=== PATIENT | female | born 1940 | race Caucasian/White ===

== ENCOUNTER 2016-09-06 11:29 | Emergency (ER) | payer OTHER ==
[~2016-09-06] VITALS: Ht 152.4 cm; Wt 78.9 kg
[~2016-09-06 11:29] MED LIST: ACET-1311 PO; ASPI81TA28 PO; CHOL100010 PO; CLCC1250 PO; CYM/30 PO; DLCS PR; DPKSR500 PO; LVQ750 PO; MAGNSUS5 PO; METO50TA7 PO; MRLP17 PO; MULT-506 PO; PRED-301 PO; PRVC/40 PO; SENN-65 PO
[2016-09-06 11:39] VITALS: TEMP 36.6; Ht 152.4 cm; Wt 78.9 kg
--- NOTE | 2016-09-06 11:51 | EMERGENCY ROOM VISIT NOTE ---
History Report prepared by Rambo: Ba Lara Under the Supervision of: Dr. Cody Liu M.D. First contact with patient: 11:34 Stated Complaint: RESPIRATORY History of Present Illness The patient is a 75 year old female who presents to the Emergency Room with complaints of acute shortness of breath. The patient came to the ED from her alf because she appeared to be having shallow respirations. She also reportedly had an episode of respiratory arrest that resolved. The patient had mucous suctioned from her airway prior to arrival. The patient reportedly had an oxygen saturation of 97 on 2L of oxygen en route to the ED, per EMS. The patient currently denies any pain. She is not sure why she is in the ED. The patient is not on any narcotics, per ED nurse. Complete history is limited secondary to dementia. Source of History: patient, EMS, nursing staff History Limited By: dementia Onset: today Position: other (respiratory) Quality: other (short of breath) Timing: other (acute) Note: Denies any pain. Review of Systems ROS is limited secondary to dementia. Past Medical & Surgical Medical Problems: (1) Alzheimer disease (2) Cerebrovascular disease (3) CKD (chronic kidney disease) stage 3, GFR 30-59 ml/min (4) Coronary artery disease (5) Diastolic CHF (6) Dyslipidemia (7) GERD (gastroesophageal reflux disease) (8) Gout (9) History of TIAs (10) Hyperglycemia (11) Hypertension (12) Rheumatoid arthritis (13) Seizure disorder (14) Stroke (15) UTI (lower urinary tract infection) Surgical Problems: (1) Status post bilateral knee replacements (2) Status post hip replacement (3) Status post hysterectomy Family History FH: cancer MOTHER FH: heart disease BROTHER FH: hypertension MOTHER FH: pancreatic cancer BROTHER Current/Historical Medications Scheduled Aspirin (Aspirin Ec), 81 MG PO DAILY Calcium Carbonate (Tums), 500 MG PO DAILY Calcium Carbonate-Vitamin D (Oyster Shell Calcium 500), 1 TAB PO QPM Cholecalciferol (Vitamin D-1000), 1,000 UNITS PO DAILY Divalproex Sodium (Divalproex Sodium ER), 250 MG PO UD Divalproex Sodium (Divalproex Sodium ER), 500 MG PO UD Duloxetine Hcl (Cymbalta), 30 MG PO DAILY Duloxetine Hcl (Cymbalta), 60 MG PO DAILY Hydrocodone/Acetaminophen 5MG/325MG ([place] 5MG/325MG), 1 TAB PO BID Levothyroxine Sodium (Levothyroxine Sodium), 1 TAB PO DAILY Metoprolol Succ (Toprol Xl) (Toprol-Xl), 50 MG PO QAM Oxygen (Oxygen), 2 LITERS NA CONTINOUS Polyethylene Glycol 3350 (Miralax), 17 GM PO BID Pravastatin Sod (Pravastatin Sodium), 40 MG PO HS Prednisone (Prednisone), 5 MG PO Q2D Senna/Docusate Sod (Senokot S), 1 TAB PO DAILY Sulfa/Trimethoprim (Bactrim Ds 800MG/160MG), 1 TAB PO BID Scheduled PRN Acetaminophen (Tylenol), 650 MG PO Q4HR PRN PRN for Mild Pain Bisacodyl (Bisac-Evac), 1 SUPP [place] UD PRN for NO BM X5 D/MOM INEFFECTIVE Magnesium Hydroxide (Milk Of Magnesia), 30 ML PO UD PRN for NO BM X 3 DAYS Sodium Phosphate/Biphosphate (Fleet Enema), 1 EA [place] UD PRN for Constipation Allergies Coded Allergies: Clopidogrel (Verified Allergy, Unknown, 09/06/16) Penicillins (Verified Allergy, Unknown, 09/06/16) Phenytoin (Verified Allergy, Unknown, 09/06/16) Hydantoins (Verified Adverse Reaction, Unknown, RASH, 09/06/16) on chart from [facility] Physical Exam Vital Signs Date Time Temp Pulse Resp B/P Pulse Ox O2 Delivery O2 Flow Rate FiO2 09/06/16 15:44 73 16 155/91 95 Room Air 09/06/16 14:26 72 20 124/81 92 Room Air 09/06/16 12:21 71 09/06/16 11:39 36.6 100 20 121/67 96 Room Air 09/06/16 11:39 97 Room Air Physical Exam GENERAL: Patient awake, disoriented to time person and place. Patient follows commands. Patient does not appear toxic. Patient is adequately hydrated and well-nourished. SKIN: No erythema, pallor, cyanosis or rash HEENT: Normal head, pupils equal, reactive to light and accommodation. Oral cavity and posterior pharynx appear normal. Quivering tongue. Neck: Without adenopathy, no neck vein distention. LUNGS: Clear to auscultation. No wheezes, no rales, no rhonchi. HEART: No murmurs. No gallops. No rubs ABDOMEN: No masses, no rebound, no hepatomegaly or splenomegaly. EXTREMITIES: Contractures of both upper arms. NEUROLOGIC: Cranial nerves II-XII within normal limits. No gross motor sensory function deficits.\ RECTAL: Brown stool Hemoccult negative. Medical Decision & Procedures ER Provider Diagnostic Interpretation: X ray results are stated below per my interpretation and the radiologist's interpretation. SINGLE VIEW CHEST CLINICAL HISTORY: Dyspnea. FINDINGS: An AP, portable, upright chest radiograph is compared to study dated 03/28/2014. Correlation is made with chest CT dated 02/23/2011. The examination is significantly degraded by portable technique and patient rotation. The heart is mildly enlarged and there is atherosclerotic calcification of the thoracic aorta. There is chronic interstitial thickening and elevation of the right hemidiaphragm. No airspace consolidation or large pleural effusion is identified. No pneumothorax is seen. The skeletal structures are osteopenic. The bony thorax is grossly intact. IMPRESSION: Mild cardiac enlargement with no acute cardiopulmonary abnormality. Electronically signed by: Raul Payne M.D. 09/06/2016 12:46 PM Dictated Date/Time: 09/06/2016 12:45 PM Laboratory Results 09/06/16 12:15 Red Blood Count 3.68, Mean Corpuscular Volume 98.1, Mean Corpuscular Hemoglobin 33.2, Mean Corpuscular Hemoglobin Concent 33.8, Mean Platelet Volume 11.7, Neutrophils (%) (Auto) 67.0, Lymphocytes (%) (Auto) 17.3, Monocytes (%) (Auto) 14.1, Eosinophils (%) (Auto) 1.0, Basophils (%) (Auto) 0.1, Neutrophils # (Auto ) 6.29, Lymphocytes # (Auto) 1.62, Monocytes # (Auto) 1.32, Eosinophils # (Auto ) 0.09, Basophils # (Auto) 0.01 09/06/16 12:15 Test 09/06/16 12:00 09/06/16 12:15 Urine Color DK YELLOW Urine Appearance CLOUDY (CLEAR) Urine pH 6.5 (4.5-7.5) Urine Specific [place] 1.034 (1.000-1.030) Urine Protein 2+ (NEG) Urine Glucose (UA) NEG (NEG) Urine Ketones TRACE (NEG) Urine Occult Blood TRACE (NEG) Urine Nitrite POS (NEG) Urine Bilirubin NEG (NEG) Urine Urobilinogen NEG (NEG) Urine Leukocyte Esterase MODERATE (NEG) Urine WBC (Auto) >30 /hpf (0-5) Urine RBC (Auto) 5-10 /hpf (0-4) Urine Hyaline Casts (Auto) 1-5 /lpf (0-5) Urine Epithelial Cells (Auto) 20-30 /lpf (0-5) Urine Bacteria (Auto) 4+ (NEG) Urine Crystals CALCIUM OXALATE (NONE Urine Mucus PRESENT (NONE PRSENT) Urine Yeast (Auto) (NONE PRSENT) White Blood Count 9.38 K/uL (4.8-10.8) Red Blood Count 3.68 M/uL (4.2-5.4) Hemoglobin 12.2 g/dL (12.0-16.0) Hematocrit 36.1 % (37-47) Mean Corpuscular Volume 98.1 fL (80-100) Mean Corpuscular Hemoglobin 33.2 pg (25-34) Mean Corpuscular Hemoglobin Concent 33.8 g/dl (32-36) Platelet Count 177 K/uL (130-400) Mean Platelet Volume 11.7 fL (7.4-10.4) Neutrophils (%) (Auto) 67.0 % Lymphocytes (%) (Auto) 17.3 % Monocytes (%) (Auto) 14.1 % Eosinophils (%) (Auto) 1.0 % Basophils (%) (Auto) 0.1 % Neutrophils # (Auto) 6.29 K/uL (1.4-6.5) Lymphocytes # (Auto) 1.62 K/uL (1.2-3.4) Monocytes # (Auto) 1.32 K/uL (0.11-0.59) Eosinophils # (Auto) 0.09 K/uL (0-0.5) Basophils # (Auto) 0.01 K/uL (0-0.2) RDW Standard Deviation 44.7 fL (36.4-46.3) RDW Coefficient of Variation 12.6 % (11.5-14.5) Immature Granulocyte % (Auto) 0.5 % Immature Granulocyte # (Auto) 0.05 K/uL (0.00-0.02) Anion Gap 8.0 mmol/L (3-11) Est Creatinine Clear Calc Drug Dose 65.3 ml/min Estimated GFR () 98.3 Estimated GFR (Non- 84.8 BUN/Creatinine Ratio 26.3 (10-20) Calcium Level 9.1 mg/dl (8.5-10.1) Total Bilirubin 0.3 mg/dl (0.2-1) Aspartate Amino Transf (AST/SGOT) 12 U/L (15-37) Alanine Aminotransferase (ALT/SGPT) 15 U/L (12-78) Alkaline Phosphatase 57 U/L (45-117) Troponin I < 0.015 ng/ml (0-0.045) Total Protein 6.9 gm/dl (6.4-8.2) Albumin 2.9 gm/dl (3.4-5.0) Globulin 4.0 gm/dl (2.5-4.0) Albumin/Globulin Ratio 0.7 (0.9-2) Laboratory results as stated above per my review. ECG Indication: SOB/dyspnea Rate (beats per minute): 74 Rhythm: sinus rhythm Findings: PAC, no acute ischemic change, other (normal axis) ED Course 1136: Past medical records reviewed. The patient was evaluated in room C3. A complete history and physical examination was performed. 1508: Explained the results with the patient. 1520: Discussed the discharge instructions with the patient. She verbalized understanding. The patient is ready for discharge. Medical Decision I considered multiple diagnoses including respiratory arrest, pneumonia, seizure , syncope, metabolic disorder, infection, UTI. The patient had questionable apnea while at the nursing facility earlier today. The patient provides no valuable history. She does not appear to be in any distress. Multiple labs, EKG and imaging were obtained. Please see above. The patient was observed for approximately 4 hours and had no respiratory distress. The patient does appear to have a urinary tract infection. She will be placed on Bactrim. Impression Primary Impression: UTI (lower urinary tract infection) Scribe Attestation The scribe's documentation has been prepared under my direction and personally reviewed by me in its entirety. I confirm that the note above accurately reflects all work, treatment, procedures, and medical decision making performed by me. Departure Information Dispostion Home / Self-Care Prescriptions Sulfa/Trimethoprim (Bactrim Ds 800MG/160MG) Tab 1 TAB PO BID, #20 TAB Prov: Cody Liu M.D. 09/06/16 Referrals Zoraida Encinas M.D. (PCP) Forms HOME CARE DOCUMENTATION FORM, IMPORTANT VISIT INFORMATION Additional Instructions One Bactrim twice a day for 10 days. Continue all of your current medications as prescribed.
[2016-09-06] MEDS ORDERED: POLY335019 PO (12:08)
[2016-09-06] MEDS ORDERED: HYDR-5688 PO (12:08)
[2016-09-06] MEDS ORDERED: DULO60CA44 PO (12:08)
[2016-09-06] MEDS ORDERED: BISA10SU7 PR (12:08)
[2016-09-06] MEDS ORDERED: OXGN (12:08)
[2016-09-06] MEDS ORDERED: SODIENE PR (12:08)
[2016-09-06] MEDS ORDERED: MOML PO (12:08)
[2016-09-06] MEDS ORDERED: CHOL100040 PO (12:08)
[2016-09-06] MEDS ORDERED: CALC500T42 PO (12:08)
[2016-09-06] MEDS ORDERED: LEVO75TA5 PO (12:08)
[2016-09-06] MEDS ORDERED: DPKSR250 PO (12:08)
[2016-09-06] MEDS ORDERED: DPKSR500 PO (12:08)
[2016-09-06] MEDS ORDERED: CALC500C3 PO (12:08)
[2016-09-06 12:15] LABS: URINE APPEARANCE CLOUDY (CLEAR); URINE COLOR DK YELLOW; URINE EPITHELIAL CELL AUTO 20-30 /lpf (0-5); URINE NITRITE POS (NEG); URINE PH 6.5 (4.5-7.5); URINE SPECIFIC GRAVITY 1.034 (1.000-1.030); UROBILINOGEN NEG (NEG); ZZURINE CULT IF INDIC CATH YES
[2016-09-06 12:25] LABS: MANUAL MICROSCOPIC REQUIRED? NO; REVIEW REQ? YES
[2016-09-06 12:26] LABS: URINE BILIRUBIN NEG (NEG); URINE MUCUS PRESENT (NONE PRSENT)
[2016-09-06 12:28] LABS: BASO % 0.1 %; BASO ABS # 0.01 K/uL (0-0.2); COMPLETE YES; HEMATOCRIT 36.1 % (37-47); IG% 0.5 %; LYMPH % 17.3 %; LYMPH ABS # 1.62 K/uL (1.2-3.4); MEAN CELL VOLUME 98.1 fL (80-100); MEAN CORPUSCULAR HEMOGLOBIN 33.2 pg (25-34); MEAN CORPUSCULAR HGB CONC 33.8 g/dl (32-36); MEAN PLATELET VOLUME 11.7 fL (7.4-10.4); MONO % 14.1 %; PLATELET COUNT 177 K/uL (130-400); RED BLOOD COUNT 3.68 M/uL (4.2-5.4); WHITE BLOOD COUNT 9.38 K/uL (4.8-10.8)
[2016-09-06 12:42] LABS: ALT/SGPT 15 U/L (12-78); AST/SGOT 12 U/L (15-37); BLOOD UREA NITROGEN 18 mg/dl (7-18); BUN/CREATININE RATIO 26.3 (10-20); CALCIUM 9.1 mg/dl (8.5-10.1); CARBON DIOXIDE 29 mmol/L (21-32); CHLORIDE 102 mmol/L (98-107); CREATININE 0.67 mg/dl (0.60-1.20); GLUCOSE 97 mg/dl (70-99); POTASSIUM 4.3 mmol/L (3.5-5.1); SODIUM 139 mmol/L (136-145)
[2016-09-06 12:46] LABS: ALB/GLOB RATIO 0.7 (0.9-2); ALKALINE PHOSPHATASE 57 U/L (45-117)
--- NOTE | 2016-09-06 12:48 | DIAGNOSTIC IMAGING REPORT ---
SINGLE VIEW CHEST CLINICAL HISTORY: Dyspnea. FINDINGS: An AP, portable, upright chest radiograph is compared to study dated 03/28/2014. Correlation is made with chest CT dated 02/23/2011. The examination is significantly degraded by portable technique and patient rotation. The heart is mildly enlarged and there is atherosclerotic calcification of the thoracic aorta. There is chronic interstitial thickening and elevation of the right hemidiaphragm. No airspace consolidation or large pleural effusion is identified. No pneumothorax is seen. The skeletal structures are osteopenic. The bony thorax is grossly intact. IMPRESSION: Mild cardiac enlargement with no acute cardiopulmonary abnormality. Electronically signed by: Raul Payne M.D. 09/06/2016 12:46 PM Dictated Date/Time: 09/06/2016 12:45 PM
[2016-09-06] MEDS ORDERED: SULF800T23 PO (15:15)
[2016-09-06 15:44] VITALS: BP 155/91; PULSE 73; O2SAT 95
[2016-10-02] MEDS ORDERED: AMOX600S PO (12:46)
[2016-10-02] MEDS ORDERED: HYDR-5688 PO (12:46)
[2016-10-02] MEDS ORDERED: PRED10TA PO (12:46)
== END 2016-09-06 16:03 | disposition home or self-care (01) ==
LOC: EDBD 11:29 → C.EDC 11:32
DX: N39.0 Urinary tract infection, site not specified (principal); G30.9 Alzheimer's disease, unspecified; F02.80 Dementia in other diseases classified elsewhere, unspecified severity, without behavioral disturbance, psychotic disturbance, mood disturbance, and anxiety; I12.9 Hypertensive chronic kidney disease with stage 1 through stage 4 chronic kidney disease, or unspecified chronic kidney disease; M06.9 Rheumatoid arthritis, unspecified; N18.3 Chronic kidney disease, stage 3 (moderate); I25.10 Atherosclerotic heart disease of native coronary artery without angina pectoris; G40.909 Epilepsy, unspecified, not intractable, without status epilepticus; E78.5 Hyperlipidemia, unspecified; Z87.440 Personal history of urinary (tract) infections; Z86.73 Personal history of transient ischemic attack (TIA), and cerebral infarction without residual deficits; Z96.653 Presence of artificial knee joint, bilateral; Z96.649 Presence of unspecified artificial hip joint; Z90.710 Acquired absence of both cervix and uterus; Z82.49 Family history of ischemic heart disease and other diseases of the circulatory system; Z80.0 Family history of malignant neoplasm of digestive organs; Z79.52 Long term (current) use of systemic steroids; Z79.82 Long term (current) use of aspirin; Z79.899 Other long term (current) drug therapy

== ENCOUNTER 2016-09-29 12:49 | Inpatient (IN) | payer OTHER ==
[~2016-09-29] VITALS: Ht 152.4 cm; Wt 78.9 kg
[~2016-09-29 12:49] MED LIST changes: +BISA10SU7 PR; +CALC500C3 PO; +CALC500T42 PO; -CHOL100010 PO; +CHOL100040 PO; -CLCC1250 PO; -DLCS PR; +DPKSR250 PO; +DULO60CA44 PO; +HYDR-5688 PO; +LEVO75TA5 PO; -LVQ750 PO; -MAGNSUS5 PO; +MOML PO; -MRLP17 PO; -MULT-506 PO; +OXGN; +POLY335019 PO; +SODIENE PR; +SULF800T23 PO
[2016-09-29] MEDS ORDERED: SODIUM CHLORIDE 0.9% 1000ML 1,000 ML IV STA (12:57)
[2016-09-29] MEDS ORDERED: CEFTRIAXONE SOD INJ 1 GM ADDVIAL IV STA (12:57)
--- NOTE | 2016-09-29 13:20 | DIAGNOSTIC IMAGING REPORT ---
CHEST ONE VIEW PORTABLE CLINICAL HISTORY: Evaluate Fever/Sepsis COMPARISON STUDY: 09/06/2016 FINDINGS: The bones soft tissues and hemidiaphragms are normal. The cardiomediastinal silhouette is normal. The lungs are clear. The pulmonary vasculature is normal. IMPRESSION: Negative chest. Electronically signed by: Dinesh Soto M.D. 09/29/2016 1:18 PM Dictated Date/Time: 09/29/2016 1:17 PM
[2016-09-29] MEDS ORDERED: DULO60CA44 PO (14:05)
[2016-09-29 14:19] LABS: BASO % 0.2 %; BASO ABS # 0.02 K/uL (0-0.2); COMPLETE YES; EOS % 0.2 %; HEMATOCRIT 34.4 % (37-47); IG% 0.5 %; LYMPH % 18.9 %; LYMPH ABS # 2.05 K/uL (1.2-3.4); MEAN CELL VOLUME 99.1 fL (80-100); MEAN CORPUSCULAR HEMOGLOBIN 33.1 pg (25-34); MEAN CORPUSCULAR HGB CONC 33.4 g/dl (32-36); MEAN PLATELET VOLUME 10.8 fL (7.4-10.4); MONO % 12.2 %; PLATELET COUNT 172 K/uL (130-400); RED BLOOD COUNT 3.47 M/uL (4.2-5.4); WHITE BLOOD COUNT 10.82 K/uL (4.8-10.8)
[2016-09-29] MEDS ORDERED: ALBUT/IPRATROP 3MG/0.5MG NEB 3 ML VIAL INH STA (14:22)
[2016-09-29] MEDS ORDERED: OYST500T47 PO (14:23)
[2016-09-29 14:31] LABS: PROTHROMBIN TIME (PATIENT) 10.4 SECONDS (9.0-12.0)
[2016-09-29 14:42] LABS: ALT/SGPT 17 U/L (12-78); AST/SGOT 17 U/L (15-37); BLOOD UREA NITROGEN 16 mg/dl (7-18); BUN/CREATININE RATIO 23.4 (10-20); CALCIUM 8.4 mg/dl (8.5-10.1); CARBON DIOXIDE 29 mmol/L (21-32); CHLORIDE 108 mmol/L (98-107); CREATININE 0.68 mg/dl (0.60-1.20); GLUCOSE 116 mg/dl (70-99); POTASSIUM 4.2 mmol/L (3.5-5.1); SODIUM 143 mmol/L (136-145)
[2016-09-29 15:16] LABS: ALKALINE PHOSPHATASE 51 U/L (45-117); CKMB/CK RATIO 5.9 (0-3.0)
--- NOTE | 2016-09-29 15:44 | EMERGENCY ROOM VISIT NOTE ---
History Report prepared by Rambo: Andressa Hammond Under the Supervision of: Dr. Shashank Paige D.O. 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 She was brought to the ED by EMS from [facility]. A PA saw the patient at noon today and states that the patient was having severe dyspnea and using accessory muscles to breath. He notes rales and rhonchi bilaterally. She was tachycardic. She was more lethargic today than usually. The patient is on 2 L of oxygen as baseline, but has been bumped up to 4 L today after her O2 sat was in the 80s. The history is limited due to the patient's aphasia. 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 A total of 10 systems reviewed and were otherwise negative. Past Medical & Surgical Medical Problems: (1) Alzheimer disease (2) Cerebrovascular disease (3) CKD (chronic kidney disease) stage 3, GFR 30-59 ml/min (4) Coronary artery disease (5) Diastolic CHF (6) Dyslipidemia (7) GERD (gastroesophageal reflux disease) (8) Gout (9) History of TIAs (10) Hyperglycemia (11) Hypertension (12) Rheumatoid arthritis (13) Seizure disorder (14) Stroke (15) UTI (lower urinary tract infection) Surgical Problems: (1) Status post bilateral knee replacements (2) Status post hip replacement (3) Status post hysterectomy Family History FH: cancer MOTHER FH: heart disease BROTHER FH: hypertension MOTHER FH: pancreatic cancer BROTHER Social History Smoking Status: Unknown if Ever Smoked Marital Status: Housing Status: prison Occupation Status: retired Current/Historical Medications Scheduled Aspirin (Aspirin Ec), 81 MG PO DAILY Calcium Carbonate (Tums), 500 MG PO DAILY Cholecalciferol (Vitamin D-1000), 1,000 UNITS PO DAILY Divalproex Sodium (Divalproex Sodium ER), 250 MG PO DAILY Divalproex Sodium (Divalproex Sodium ER), 500 MG PO DAILY Duloxetine Hcl (Cymbalta), 60 MG PO DAILY Hydrocodone/Acetaminophen 5MG/325MG ([place] 5MG/325MG), 1 TAB PO BID Levothyroxine Sodium (Levothyroxine Sodium), 75 MCG PO DAILY Metoprolol Succ (Toprol Xl) (Toprol-Xl), 50 MG PO QAM Oxygen (Oxygen), 2 LITERS NA CONTINOUS Oyster Shell (Calcium), 500 MG PO DAILY Polyethylene Glycol 3350 (Miralax), 255 GM PO BID Pravastatin Sod (Pravastatin Sodium), 40 MG PO DAILY Prednisone (Prednisone), 5 MG PO Q2D Senna/Docusate Sod (Senokot S), 1 TAB PO HS Scheduled PRN Acetaminophen (Tylenol), 650 MG PO Q4HR PRN PRN for Mild Pain Bisacodyl (Bisac-Evac), 1 SUPP [place] UD PRN for NO BM X5 D/MOM INEFFECTIVE Magnesium Hydroxide (Milk Of Magnesia), 5 ML PO UD PRN for NO BM X 3 DAYS Sodium Phosphate/Biphosphate (Fleet Enema), 1 EA [place] UD PRN for Constipation Allergies Coded Allergies: Clopidogrel (Verified Allergy, Unknown, 09/29/16) Penicillins (Verified Allergy, Unknown, 09/29/16) Phenytoin (Verified Allergy, Unknown, 09/29/16) Hydantoins (Verified Adverse Reaction, Unknown, RASH, 09/29/16) on chart from [facility] Uncoded Allergies: THIENOPYRIDINES (Adverse Reaction, Unknown, ., 09/29/16) ON LIST Physical Exam Vital Signs Date Time Temp Pulse Resp B/P Pulse Ox O2 Delivery O2 Flow Rate FiO2 09/29/16 14:20 88 Nasal Cannula 4.0 09/29/16 14:08 72 18 123/66 97 Nasal Cannula 4.0 09/29/16 13:47 68 20 112/65 94 Nasal Cannula 4.0 09/29/16 13:04 Nasal Cannula 2.0 09/29/16 13:03 77 09/29/16 12:55 37.1 76 22 119/68 95 Nasal Cannula 2.0 Physical Exam CONSTITUTIONAL/VITAL SIGNS: Reviewed / noted above. GENERAL: Non-toxic in appearance. INTEGUMENTARY: Warm, dry, and [place]. HEAD: Normocephalic. EYES: without scleral icterus or trauma. ENT/OROPHARYNX: clear and moist. LYMPHADENOPATHY/NECK: Is supple without lymphadenopathy or meningismus. RESPIRATORY: Bilateral rhonchi, diminished left greater than right. No respiratory distress at this time. No increased work of breathing. CARDIOVASCULAR: Regular rate and rhythm. GI/ABDOMEN: Soft and nontender. No organomegaly or pulsatile mass. No rebound or guarding. Normal bowel sounds. EXTREMITIES: Warm and well perfused. BACK: No CVA tenderness. NEUROLOGICAL: Baseline upper and lower extremity paresis. PSYCHIATRIC: normal affect. MUSCULOSKELETAL: Normally developed with good muscle tone. Medical Decision & Procedures ER Provider Diagnostic Interpretation: X ray results and stated below per my interpretation and radiology interpretation. CHEST ONE VIEW PORTABLE CLINICAL HISTORY: Evaluate Fever/Sepsis COMPARISON STUDY: 09/06/2016 FINDINGS: The bones soft tissues and hemidiaphragms are normal. The cardiomediastinal silhouette is normal. The lungs are clear. The pulmonary vasculature is normal. IMPRESSION: Negative chest. Electronically signed by: Dinesh Soto M.D. 09/29/2016 1:18 PM Dictated Date/Time: 09/29/2016 1:17 PM Laboratory Results 09/29/16 13:55 Red Blood Count 3.47, Mean Corpuscular Volume 99.1, Mean Corpuscular Hemoglobin 33.1, Mean Corpuscular Hemoglobin Concent 33.4, Mean Platelet Volume 10.8, Neutrophils (%) (Auto) 68.0, Lymphocytes (%) (Auto) 18.9, Monocytes (%) (Auto) 12.2, Eosinophils (%) (Auto) 0.2, Basophils (%) (Auto) 0.2, Neutrophils # (Auto ) 7.36, Lymphocytes # (Auto) 2.05, Monocytes # (Auto) 1.32, Eosinophils # (Auto ) 0.02, Basophils # (Auto) 0.02 09/29/16 13:55 Test 09/29/16 13:01 09/29/16 13:55 Influenza Type A Antigen Neg for Influ A (NEG) Influenza Type B Antigen Neg for Influ B (NEG) White Blood Count 10.82 K/uL (4.8-10.8) Red Blood Count 3.47 M/uL (4.2-5.4) Hemoglobin 11.5 g/dL (12.0-16.0) Hematocrit 34.4 % (37-47) Mean Corpuscular Volume 99.1 fL (80-100) Mean Corpuscular Hemoglobin 33.1 pg (25-34) Mean Corpuscular Hemoglobin Concent 33.4 g/dl (32-36) Platelet Count 172 K/uL (130-400) Mean Platelet Volume 10.8 fL (7.4-10.4) Neutrophils (%) (Auto) 68.0 % Lymphocytes (%) (Auto) 18.9 % Monocytes (%) (Auto) 12.2 % Eosinophils (%) (Auto) 0.2 % Basophils (%) (Auto) 0.2 % Neutrophils # (Auto) 7.36 K/uL (1.4-6.5) Lymphocytes # (Auto) 2.05 K/uL (1.2-3.4) Monocytes # (Auto) 1.32 K/uL (0.11-0.59) Eosinophils # (Auto) 0.02 K/uL (0-0.5) Basophils # (Auto) 0.02 K/uL (0-0.2) RDW Standard Deviation 45.5 fL (36.4-46.3) RDW Coefficient of Variation 12.5 % (11.5-14.5) Immature Granulocyte % (Auto) 0.5 % Immature Granulocyte # (Auto) 0.05 K/uL (0.00-0.02) Prothrombin Time 10.4 SECONDS (9.0-12.0) Prothromb Time International Ratio 1.0 (0.9-1.1) Activated Partial Thromboplast Time 25.0 SECONDS (21.0-31.0) Partial Thromboplastin Ratio 1.0 Anion Gap 6.0 mmol/L (3-11) Estimated GFR () 97.8 Estimated GFR (Non- 84.4 BUN/Creatinine Ratio 23.4 (10-20) Calcium Level 8.4 mg/dl (8.5-10.1) Total Bilirubin 0.4 mg/dl (0.2-1) Direct Bilirubin 0.1 mg/dl (0-0.2) Aspartate Amino Transf (AST/SGOT) 17 U/L (15-37) Alanine Aminotransferase (ALT/SGPT) 17 U/L (12-78) Alkaline Phosphatase 51 U/L (45-117) Total Creatine Kinase 17 U/L (26-192) Creatine Kinase MB 1.0 ng/ml (0.5-3.6) Creatine Kinase MB Ratio 5.9 (0-3.0) Troponin I 0.084 ng/ml (0-0.045) Total Protein 6.3 gm/dl (6.4-8.2) Albumin 2.6 gm/dl (3.4-5.0) Lipase 172 U/L (73-393) Laboratory results as stated above per my review. Medications Administered Medications (Trade) Dose Ordered Sig/Mauricio Route Start Time Stop Time Status Last Admin Dose Admin Sodium Chloride (Nss 1000ml) 1,000 ml @ 999 mls/hr Q1H1M STAT IV 09/29/16 12:57 09/29/16 13:57 DC 09/29/16 13:25 999 MLS/HR Ceftriaxone Sodium (Rocephin Inj) 1 gm NOW STAT IV 09/29/16 12:57 09/29/16 13:00 DC 09/29/16 14:10 1 GM Albuterol/ Ipratropium (Duoneb) 3 ml NOW STAT INH 09/29/16 14:22 09/29/16 14:23 DC 09/29/16 14:24 3 ML ECG Indication: SOB/dyspnea Rate (beats per minute): 77 Rhythm: normal sinus Findings: no ectopy, other (no acute injury) ED Course 1257: Rocephin Inj 1 gm IV, NSS 1000 ml @ 999 mls/hr IV. 1259: Previous medical records were reviewed. The patient was evaluated in room C9. A complete history and physical examination was performed. 1422: Duoneb 3 ml INH. 1532: On reevaluation, the patient is resting comfortably. I discussed the results and findings with her. She agrees with the treatment plan. The patient will be evaluated for further management and care. 1535: I discussed the patient's case with Dr. Woodall, [place] Hospitalist. The patient will be evaluated for further management. Medical Decision the differential was considered includes acute myocardial infarction, acute coronary syndrome, myocarditis, pericarditis, pericardial effusions /tamponad, esophageal perforation, pulmonary embolism, pneumonia, pneumothorax, cardiomyopathy, congestive heart, anemia , COPD/asthma exacerbation. This is a 75-year-old female who presents to the ED with a chief complaint of having visible shortness of breath while at the nursing facility. The patient was evaluated by physician service assistant there. Per the note, the patient was having respiratory distress, using accessory muscles and had a pulse ox in the mid lower 80s. The patient is normally on 2 L of oxygen at home. She was suctioned at the nursing facility. Upon EMS arrival, the patient's symptoms had improved. On the patient's evaluation here, her oxygen saturations are 95% on 2 L. The patient really reports no shortness of breath. Lungs reveal some crackles. She is in no respiratory distress. She is not using accessory muscles. She appears to be breathing comfortably. Chest x-ray did not show any acute disease. EKG shows a normal sinus rhythm. There are no ischemic changes. CBC was unremarkable. Flu swab was negative. Chemistry panel was unremarkable. Troponin was elevated at 0.084. This could be related to some transient hypoxia. Because of this elevation, I did speak with the hospitalist service who will further evaluate the patient. The patient is currently resting comfortably after a DuoNeb treatment. Her oxygen saturations are currently in the 90s on 2 L of oxygen, her usual home O2 concentration. Consults Time Called: 1530 Consulting Physician: Dr. Woodall [facility] hospitalist Returned Call: [phone] Discussed the patient's case. The patient will be evaluated for further treatment and disposition. Impression Primary Impression: NSTEMI (non-ST elevated myocardial infarction) Additional Impression: transient hypoxemia Scribe Attestation The scribe's documentation has been prepared under my direction and personally reviewed by me in its entirety. I confirm that the note above accurately reflects all work, treatment, procedures, and medical decision making performed by me. Departure Information Dispostion Being Evaluated By Hospitalist Referrals Zoraida Encinas M.D. (PCP) Patient Instructions My [facility] Problem Qualifiers
[2016-09-29] MEDS ORDERED: NITROGLYCERIN 0.4 MG SL PER TAB CHARGE SL PRN (17:30)
[2016-09-29 18:15] VITALS: BP 143/84; PULSE 94; TEMP 36.9; O2SAT 94
[2016-09-29 18:20] VITALS: BP 120/76; PULSE 81; TEMP 37.1; O2SAT 96; Ht 152.4 cm; Wt 78.9 kg
[2016-09-29] MEDS: D5W AND LACTATED RINGERS 1,000 ML IV SCH (18:55)
[2016-09-29] MEDS ORDERED: HYDROCORTISONE IV 50 MG in SYRINGE 0 ML IV ONE (19:00)
[2016-09-29] MEDS: ACETAMINOPHEN 325 MG TAB PO PRN (19:31)
[2016-09-29 19:37] VITALS: BP 117/64; PULSE 97; TEMP 36.8; O2SAT 93
[2016-09-29] MEDS: HEPARIN SOD 5000 UNIT/0.5 ML CARP SQ SCH (20:57)
[2016-09-29 22:55] LABS: CKMB/CK RATIO 4.2 (0-3.0)
--- NOTE | 2016-09-29 23:11 | History and Physical ---
History & Physical Date & Time of Service: Sep 29, 2016 at ~ 17:30 . Chief Complaint: vomiting, hypoxia . Primary Care Physician: Zoraida Encinas M.D. . History of Present Illness Source: family, clinic records, hospital records 75 YO female followed by Dr. Encinas at [facility]. History of ischemic heart disease, diastolic CHF, hypertension, Alzheimer's disease, cerebrovascular disease, and other problems noted below. Uses O2 2 LPM for chronic respiratory failure. Patient very confused and nonambulatory at baseline. Requires assistance with eating and all ADL's. Daughter reports episode of vomiting yesterday. Today patient was noted to be acutely SOB with chest congestion and hypoxia with O2 sats in the low 80's on NC 2 LPM. Patient was suctioned. O2 sats still only 85% on 4L. Patient was transported to ED for further evaluation. Patient unable to provide any history due to her severe dementia. . Past Medical/Surgical History Chronic and Resolved Medical Problems: (1) Alzheimer disease Status: Chronic (2) Cerebrovascular disease Status: Chronic (3) CKD (chronic kidney disease) stage 3, GFR 30-59 ml/min Status: Chronic (4) Coronary artery disease Status: Chronic (5) Diastolic CHF Status: Chronic (6) Dyslipidemia Status: Chronic (7) GERD (gastroesophageal reflux disease) Status: Chronic (8) Gout Status: Chronic (9) History of TIAs Status: Chronic (10) Hyperglycemia Status: Chronic (11) Hypertension Status: Chronic (12) Rheumatoid arthritis Permanent Comment: chronic prednisone therapy Status: Chronic (13) Seizure disorder Status: Chronic (14) Stroke Status: Resolved (15) UTI (lower urinary tract infection) Status: Resolved Surgical Problems: (1) Status post bilateral knee replacements Status: Chronic (2) Status post hip replacement Status: Chronic (3) Status post hysterectomy Status: Chronic . Family History FH: cancer MOTHER FH: heart disease BROTHER FH: hypertension MOTHER FH: pancreatic cancer BROTHER Social History Smoking Status: Never Smoker Alcohol Use: none Marital Status: Housing status: prison Occupational Status: retired Immunizations History of Influenza Vaccine: Yes History of Tetanus Vaccine?: Yes Tetanus Immunization Date: Jun 06, 2009 History of Pneumococcal: Yes Pneumococcal Date: Aug 29, 2011 History of Hepatitis B Vaccine: No Allergies Coded Allergies: Clopidogrel (Verified Allergy, Unknown, 09/29/16) Penicillins (Verified Allergy, Unknown, 09/29/16) Phenytoin (Verified Allergy, Unknown, 09/29/16) Hydantoins (Verified Adverse Reaction, Unknown, RASH, 09/29/16) on chart from [facility] Uncoded Allergies: THIENOPYRIDINES (Adverse Reaction, Unknown, ., 09/29/16) ON LIST Home Medications Scheduled Aspirin (Aspirin Ec), 81 MG PO DAILY Calcium Carbonate (Tums), 500 MG PO DAILY Cholecalciferol (Vitamin D-1000), 1,000 UNITS PO DAILY Divalproex Sodium (Divalproex Sodium ER), 250 MG PO DAILY Divalproex Sodium (Divalproex Sodium ER), 500 MG PO DAILY Duloxetine Hcl (Cymbalta), 60 MG PO DAILY Hydrocodone/Acetaminophen 5MG/325MG (Platter 5MG/325MG), 1 TAB PO BID Levothyroxine Sodium (Levothyroxine Sodium), 75 MCG PO DAILY Metoprolol Succ (Toprol Xl) (Toprol-Xl), 50 MG PO QAM Oxygen (Oxygen), 2 LITERS NA CONTINOUS Oyster Shell (Calcium), 500 MG PO DAILY Polyethylene Glycol 3350 (Miralax), 255 GM PO BID Pravastatin Sod (Pravastatin Sodium), 40 MG PO DAILY Prednisone (Prednisone), 5 MG PO Q2D Senna/Docusate Sod (Senokot S), 1 TAB PO HS Scheduled PRN Acetaminophen (Tylenol), 650 MG PO Q4HR PRN PRN for Mild Pain Bisacodyl (Bisac-Evac), 1 SUPP NC UD PRN for NO BM X5 D/MOM INEFFECTIVE Magnesium Hydroxide (Milk Of Magnesia), 5 ML PO UD PRN for NO BM X 3 DAYS Sodium Phosphate/Biphosphate (Fleet Enema), 1 EA NC UD PRN for Constipation Review of Systems Unable to obtain due to patient's dementia. . Physical Exam Vital Signs Date Time Temp Pulse Resp B/P Pulse Ox O2 Delivery O2 Flow Rate FiO2 09/29/16 20:00 Nasal Cannula 4.0 09/29/16 19:37 36.8 97 18 117/64 93 Nasal Cannula 4.0 09/29/16 18:20 37.1 81 22 120/76 96 Nasal Cannula 4.0 09/29/16 18:15 36.9 94 18 143/84 94 Nasal Cannula 4.0 09/29/16 18:10 81 22 120/76 96 09/29/16 17:03 70 09/29/16 16:34 72 18 127/70 100 Room Air 09/29/16 14:20 88 Nasal Cannula 4.0 09/29/16 14:08 72 18 123/66 97 Nasal Cannula 4.0 09/29/16 13:47 68 20 112/65 94 Nasal Cannula 4.0 09/29/16 13:04 Nasal Cannula 2.0 09/29/16 13:03 77 09/29/16 12:55 37.1 76 22 119/68 95 Nasal Cannula 2.0 General Appearance: no apparent distress Head: normocephalic, atraumatic Eyes: PERRL, EOMI, sclerae normal ENT: + pertinent finding (edentulous) Neck: supple, no adenopathy, thyroid normal, no JVD, trachea midline Respiratory/Chest: + pertinent finding (few scattered rhonchi, mild wheezing) Cardiovascular: regular rate, rhythm, no edema (1+ pretibial edema), no JVD, + systolic murmur (III/ systolic murmur heard at base and LSB), + pertinent finding (no gallop appreciated) Abdomen/GI: normal bowel sounds, non tender, soft, no organomegaly Extremities/Musculoskelatal: no calf tenderness, + slow capillary refill ( about 2 sec), + pertinent finding (contractures hands bilat) Neurologic/Psych: radio director II-XII nml as tested (PERRL, EOMI), + pertinent finding ( patient very confused; unable to cooperate with exam or follow instructions; apparent weakness bilat upper and lower extremities; plantar reflexes upgoing bilat) Skin: normal color, warm/dry Lymphatic: + pertinent finding (no cervical adenopathy) Diagnostics Laboratory Results Results Past 24 Hours Test 09/29/16 13:01 09/29/16 13:55 09/29/16 22:07 Range/Units Influenza Type A Antigen Neg for Influ A NEG Influenza Type B Antigen Neg for Influ B NEG White Blood Count 10.82 4.8-10.8 K/uL Red Blood Count 3.47 4.2-5.4 M/uL Hemoglobin 11.5 12.0-16.0 g/dL Hematocrit 34.4 37-47 % Mean Corpuscular Volume 99.1 80-100 fL Mean Corpuscular Hemoglobin 33.1 25-34 pg Mean Corpuscular Hemoglobin Concent 33.4 32-36 g/dl Platelet Count 172 130-400 K/uL Mean Platelet Volume 10.8 7.4-10.4 fL Neutrophils (%) (Auto) 68.0 % Lymphocytes (%) (Auto) 18.9 % Monocytes (%) (Auto) 12.2 % Eosinophils (%) (Auto) 0.2 % Basophils (%) (Auto) 0.2 % Neutrophils # (Auto) 7.36 1.4-6.5 K/uL Lymphocytes # (Auto) 2.05 1.2-3.4 K/uL Monocytes # (Auto) 1.32 0.11-0.59 K/uL Eosinophils # (Auto) 0.02 0-0.5 K/uL Basophils # (Auto) 0.02 0-0.2 K/uL RDW Standard Deviation 45.5 36.4-46.3 fL RDW Coefficient of Variation 12.5 11.5-14.5 % Immature Granulocyte % (Auto) 0.5 % Immature Granulocyte # (Auto) 0.05 0.00-0.02 K/uL Prothrombin Time 10.4 9.0-12.0 SECONDS Prothromb Time International Ratio 1.0 0.9-1.1 Activated Partial Thromboplast Time 25.0 21.0-31.0 SECONDS Partial Thromboplastin Ratio 1.0 Sodium Level 143 136-145 mmol/L Potassium Level 4.2 3.5-5.1 mmol/L Chloride Level 108 98-107 mmol/L Carbon Dioxide Level 29 21-32 mmol/L Anion Gap 6.0 3-11 mmol/L Blood Urea Nitrogen 16 7-18 mg/dl Creatinine 0.68 0.60-1.20 mg/dl Estimated GFR () 97.8 Estimated GFR (Non- 84.4 BUN/Creatinine Ratio 23.4 10-20 Random Glucose 116 70-99 mg/dl Calcium Level 8.4 8.5-10.1 mg/dl Total Bilirubin 0.4 0.2-1 mg/dl Direct Bilirubin 0.1 0-0.2 mg/dl Aspartate Amino Transf (AST/SGOT) 17 15-37 U/L Alanine Aminotransferase (ALT/SGPT) 17 12-78 U/L Alkaline Phosphatase 51 45-117 U/L Total Creatine Kinase 17 24 26-192 U/L Creatine Kinase MB 1.0 1.0 0.5-3.6 ng/ml Creatine Kinase MB Ratio 5.9 4.2 0-3.0 Troponin I 0.084 0.059 0-0.045 ng/ml Total Protein 6.3 6.4-8.2 gm/dl Albumin 2.6 3.4-5.0 gm/dl Lipase 172 73-393 U/L Microbiology Results 09/29/16 Blood Culture, Received Pending 09/29/16 Blood Culture, Received Pending Diagnostic Radiology CHEST ONE VIEW PORTABLE FINDINGS: The bones soft tissues and hemidiaphragms are normal. The cardiomediastinal silhouette is normal. The lungs are clear. The pulmonary vasculature is normal. IMPRESSION: Negative chest. Electronically signed by: Dinesh Soto M.D. 09/29/2016 1:18 PM Dictated Date/Time: 09/29/2016 1:17 PM . EKG EKG performed at 13:13 reviewed and demonstrated NSR at 80 / minute, RBBB, repolarization abnormalities. . Impression Assessment and Plan HYPOXIA / ACUTE ON CHRONIC RESPIRATORY FAILURE Acute respiratory distress with tachypnea and use of accessory muscles at prison. O2 sats in low 80's on NC 2 LPM. Hypoxia most likely due to aspiration. No infiltrates or CHF on chest x-ray. Titrate supplemental O2. IV steroids and nebs for bronchospasm. SUSPECTED ASPIRATION Underlying Alzheimer's disease and cerebrovascular disease. Aspiration precautions. Pureed diet with thickened liquids. VOMITING Patient had at least one episode of vomiting at the prison. Abdominal exam benign. May need further evaluation if ongoing N/V. ELEVATED SERUM TROPONIN Troponin I 0.084 with normal total CPK. Unable to determine if patient having any anginal symptoms. EKG shows NSR, RBBB, nonspecific changes. Suspect that elevated troponin is a nonspecific finding. Check serial cardiac markers. CORONARY ARTERY DISEASE Elevated troponin as noted above. Continue aspirin, metoprolol, statin. HYPERTENSION Continue metoprolol. Follow and titrate therapy. RA On chronic prednisone therapy. IV hydrocortisone while acutely ill to maintain hemodynamics and treat bronchospasm with taper to maintenance dose of prednisone. DEMENTIA Watch for signs of delirium. SEIZURE DISORDER Continue valproic acid; check level. VTE PROPHYLAXIS Moderately high risk for DVT. Subcutaneous heparin. Unable to ambulate. RESUSCITATION STATUS Patient has a living will from 2007. Records from [facility] indicate that code status is DNR. DNR status confirmed with daughter. DISPOSITION Admit to Telemetry Unit. Expected return to [facility] under the care of Dr. Encinas. . Advanced Directives Existing Living Will: No Existing Power of Shrimp Cleaner: No VTE Prophylaxis VTE Risk Assessment Done? Y/N: Yes Risk Level: Moderate Given or contraindicated: Unfractionated heparin SQ
[2016-09-30] VITALS (10 sets, daily range): BP systolic 99–139; BP diastolic 58–74; PULSE 59–77; TEMP 36.7–37; O2SAT 93–100
[2016-09-30 04:38] LABS: URINE APPEARANCE CLEAR (CLEAR); URINE BILIRUBIN NEG (NEG); URINE COLOR YELLOW; URINE EPITHELIAL CELL AUTO >30 /lpf (0-5); URINE NITRITE NEG (NEG); UROBILINOGEN NEG (NEG); ZZURINE CULT IF INDIC CATH NO
[2016-09-30 04:39] LABS: MANUAL MICROSCOPIC REQUIRED? NO; REVIEW REQ? NO
[2016-09-30] MEDS ORDERED: LEVALBUTEROL 0.63MG/3 ML NEB INH PRN (05:00)
[2016-09-30] MEDS: LEVOTHYROXINE 75 MCG TAB PO SCH (06:00)
[2016-09-30] MEDS ORDERED: HYDROCORTISONE IV 50 MG in SYRINGE 0 ML IV SCH (06:00)
[2016-09-30 06:40] LABS: HEMATOCRIT 32.7 % (37-47); MEAN CORPUSCULAR HEMOGLOBIN 32.9 pg (25-34); MEAN CORPUSCULAR HGB CONC 33.9 g/dl (32-36); MEAN PLATELET VOLUME 11.2 fL (7.4-10.4); PLATELET COUNT 158 K/uL (130-400); RED BLOOD COUNT 3.37 M/uL (4.2-5.4); WHITE BLOOD COUNT 7.75 K/uL (4.8-10.8)
[2016-09-30 07:09] LABS: BUN/CREATININE RATIO 19.9 (10-20); CALCIUM 8.8 mg/dl (8.5-10.1); CREATININE 0.65 mg/dl (0.60-1.20); POTASSIUM 3.6 mmol/L (3.5-5.1)
[2016-09-30 07:15] LABS: CKMB/CK RATIO 3.5 (0-3.0)
--- NOTE | 2016-09-30 07:16 | Clinical Documentation Query ---
JAVED Lorenzana : CLINICAL DOCUMENTATION QUERY Patient is a 75 year old female admitted for evaluation and treatment of acute respiratory failure in the setting of suspected aspiration. Patient was noted to have experienced at least one episode of vomiting at the residential. No infiltrates were seen on CXR. Supplemental O2 is being provided as is IV steroids for bronchospasm. She is being maintained on aspiration precautions and a pureed diet with thickened liquids. Risk factors include vomiting in the setting of known cerebrovascular disease and Alzheimer's dementia. In your clinical opinion is this patient being managed for: ( + ) Aspiration pneumonitis ( ) Other explanation of clinical findings (Please Explain) ( ) Unable to determine (Please Define) ( ) Need to Discuss ( ) Not Agree The medical record reflects the following clinical findings, treatment, and risk factors. Clinical Indicators: As above Treatment:Supplemental O2 is being provided as is IV steroids for bronchospasm. She is being maintained on aspiration precautions and a pureed diet with thickened liquids Risk Factors:cerebrovascular disease and Alzheimer's dementia, vomiting Please clarify and document your clinical opinion in the progress notes and discharge summary. Terms such as "probable", "suspected", "likely", "questionable", "possible", or "still to be ruled out" are acceptable. IF IN AGREEMENT, YOU MUST DOCUMENT ABOVE DIAGNOSTIC STATEMENT IN DAILY PROGRESS NOTES AND DISCHARGE SUMMARY. This document is not part of the patient's record. Thank You, Iglesia Simon RN [phone]
[2016-09-30] MEDS: D5W AND LACTATED RINGERS 1,000 ML IV SCH ×2 (08:09→20:55)
[2016-09-30] MEDS: PRAVASTATIN SOD 40 MG TAB PO SCH (08:11)
[2016-09-30] MEDS: METOPROLOL SUCC 50MG EXT REL TAB PO SCH (08:11)
[2016-09-30] MEDS: ASPIRIN 81 MG ECTAB PO SCH (08:11)
[2016-09-30] MEDS: DULOXETINE HCL 60 MG CAP PO SCH (08:11)
[2016-09-30] MEDS: DIVALPROEX 500 MG EXTENDED RELEASE TAB PO SCH (08:12)
[2016-09-30] MEDS: DIVALPROEX 250 MG EXTENDED REL TAB PO SCH (08:12)
[2016-09-30] MEDS: HEPARIN SOD 5000 UNIT/0.5 ML CARP SQ SCH ×2 (08:17→20:55)
--- NOTE | 2016-09-30 10:05 | Progress Note ---
Internal Med Progress Note Date of Service: Sep 30, 2016. Provider Documentation: SUBJECTIVE: Patient is disoriented x 3, minimal conversation which is her baseline, alert + Cough, congested, not bringing up much sputum. Denies any chest pain. No fever, chills noted On 4 L oxygen OBJECTIVE: Vital Signs-as noted below Exam: General Appearance: Awake, alert, disoriented x 3 at baseline ENT: + pertinent finding (edentulous) Neck: supple Respiratory/Chest: + pertinent finding (few scattered rhonchi) Cardiovascular: regular rate, rhythm, no edema (1+ pretibial edema), no JVD, + systolic murmur Abdomen/GI: normal bowel sounds, non tender, soft Extremities/Musculoskelatal: no calf tenderness, + pertinent finding ( contractures hands bilat) Neurologic/Psych: Patient very confused; unable to cooperate with exam or follow instructions; apparent weakness bilat upper and lower extremities Lab data as noted below. Diagnostic Radiology CHEST ONE VIEW PORTABLE FINDINGS: The bones soft tissues and hemidiaphragms are normal. The cardiomediastinal silhouette is normal. The lungs are clear. The pulmonary vasculature is normal. IMPRESSION: Negative chest. Electronically signed by: Dinesh Soto M.D. 09/29/2016 1:18 PM Dictated Date/Time: 09/29/2016 1:17 PM . EKG EKG performed at 13:13 reviewed and demonstrated NSR at 80 / minute, RBBB, repolarization abnormalities. ASSESSMENT & PLAN: Assessment and Plan ACUTE ON CHRONIC HYPOXIC RESPIRATORY FAILURE : Acute respiratory distress with tachypnea and [facility]. O2 sats in low 80's on NC 2 LPM. Hypoxia most likely due to aspiration -No infiltrates or CHF on chest x-ray. -Titrate supplemental O2. -IV steroids and nebs for bronchospasm. SUSPECTED ASPIRATION PNEUMONITIS : Underlying Alzheimer's disease and cerebrovascular disease. -Came with hypoxia and had an episode of vomiting yesterday at [facility] -CXR- no infiltrates, but can be negative initially -Will start on PO Augmentin -Aspiration precautions. -Pureed diet with thickened liquids. -Speech Rx consulted VOMITING : Patient had at least one episode of vomiting at the [facility]. -No further episodes of nausea, vomiting. Abdominal exam benign. ELEVATED SERUM TROPONIN Troponin I 0.084--> 0.059-->0.037 Likely demand ischemia, but unable to determine if patient having any anginal symptoms. -EKG shows NSR, RBBB, nonspecific changes. -Monitor CORONARY ARTERY DISEASE Elevated troponin as noted above. -Continue aspirin, metoprolol, statin. HYPERTENSION -Continue metoprolol. -Follow and titrate therapy. RA -On chronic prednisone therapy. -IV hydrocortisone while acutely ill to maintain hemodynamics and treat bronchospasm --> will taper to prednisone DEMENTIA -Watch for signs of delirium. -At her baseline- Non ambulatory, Disoriented x 3, minimal conversation SEIZURE DISORDER -Valproic acid- 58; -Continue with depakote as at home VTE PROPHYLAXIS -Moderately high risk for DVT. -Subcutaneous heparin. -Unable to ambulate. RESUSCITATION STATUS Patient has a living will from 2007. Records from [facility] indicate that code status is DNR. DNR status confirmed with daughter. DISPOSITION Expected return to [facility] under the care of Dr. Encinas. Vital Signs: Date Time Temp Pulse Resp B/P Pulse Ox O2 Delivery O2 Flow Rate FiO2 09/30/16 08:00 100 Nasal Cannula 4.0 09/30/16 07:50 36.8 72 18 114/71 100 Nasal Cannula 4.0 09/30/16 06:25 99/63 09/30/16 04:00 37.0 76 20 99/61 97 4.0 09/30/16 04:00 Nasal Cannula 4.0 09/30/16 00:00 Nasal Cannula 4.0 09/30/16 00:00 36.7 77 18 139/58 96 Nasal Cannula 4.0 09/29/16 20:00 Nasal Cannula 4.0 09/29/16 19:37 36.8 97 18 117/64 93 Nasal Cannula 4.0 09/29/16 18:20 37.1 81 22 120/76 96 Nasal Cannula 4.0 09/29/16 18:15 36.9 94 18 143/84 94 Nasal Cannula 4.0 09/29/16 18:10 81 22 120/76 96 09/29/16 17:03 70 09/29/16 16:34 72 18 127/70 100 Room Air 09/29/16 14:20 88 Nasal Cannula 4.0 09/29/16 14:08 72 18 123/66 97 Nasal Cannula 4.0 09/29/16 13:47 68 20 112/65 94 Nasal Cannula 4.0 09/29/16 13:04 Nasal Cannula 2.0 09/29/16 13:03 77 09/29/16 12:55 37.1 76 22 119/68 95 Nasal Cannula 2.0 Lab Results: Results Past 24 Hours Test 09/29/16 13:01 09/29/16 13:55 09/29/16 22:07 09/30/16 04:22 Range/Units Influenza Type A Antigen Neg for Influ A NEG Influenza Type B Antigen Neg for Influ B NEG White Blood Count 10.82 4.8-10.8 K/uL Red Blood Count 3.47 4.2-5.4 M/uL Hemoglobin 11.5 12.0-16.0 g/dL Hematocrit 34.4 37-47 % Mean Corpuscular Volume 99.1 80-100 fL Mean Corpuscular Hemoglobin 33.1 25-34 pg Mean Corpuscular Hemoglobin Concent 33.4 32-36 g/dl Platelet Count 172 130-400 K/uL Mean Platelet Volume 10.8 7.4-10.4 fL Neutrophils (%) (Auto) 68.0 % Lymphocytes (%) (Auto) 18.9 % Monocytes (%) (Auto) 12.2 % Eosinophils (%) (Auto) 0.2 % Basophils (%) (Auto) 0.2 % Neutrophils # (Auto) 7.36 1.4-6.5 K/uL Lymphocytes # (Auto) 2.05 1.2-3.4 K/uL Monocytes # (Auto) 1.32 0.11-0.59 K/uL Eosinophils # (Auto) 0.02 0-0.5 K/uL Basophils # (Auto) 0.02 0-0.2 K/uL RDW Standard Deviation 45.5 36.4-46.3 fL RDW Coefficient of Variation 12.5 11.5-14.5 % Immature Granulocyte % (Auto) 0.5 % Immature Granulocyte # (Auto) 0.05 0.00-0.02 K/uL Prothrombin Time 10.4 9.0-12.0 SECONDS Prothromb Time International Ratio 1.0 0.9-1.1 Activated Partial Thromboplast Time 25.0 21.0-31.0 SECONDS Partial Thromboplastin Ratio 1.0 Sodium Level 143 136-145 mmol/L Potassium Level 4.2 3.5-5.1 mmol/L Chloride Level 108 98-107 mmol/L Carbon Dioxide Level 29 21-32 mmol/L Anion Gap 6.0 3-11 mmol/L Blood Urea Nitrogen 16 7-18 mg/dl Creatinine 0.68 0.60-1.20 mg/dl Estimated GFR () 97.8 Estimated GFR (Non- 84.4 BUN/Creatinine Ratio 23.4 10-20 Random Glucose 116 70-99 mg/dl Calcium Level 8.4 8.5-10.1 mg/dl Total Bilirubin 0.4 0.2-1 mg/dl Direct Bilirubin 0.1 0-0.2 mg/dl Aspartate Amino Transf (AST/SGOT) 17 15-37 U/L Alanine Aminotransferase (ALT/SGPT) 17 12-78 U/L Alkaline Phosphatase 51 45-117 U/L Total Creatine Kinase 17 24 26-192 U/L Creatine Kinase MB 1.0 1.0 0.5-3.6 ng/ml Creatine Kinase MB Ratio 5.9 4.2 0-3.0 Troponin I 0.084 0.059 0-0.045 ng/ml Total Protein 6.3 6.4-8.2 gm/dl Albumin 2.6 3.4-5.0 gm/dl Lipase 172 73-393 U/L Urine Color YELLOW Urine Appearance CLEAR CLEAR Urine pH 6.0 4.5-7.5 Urine Specific [place] 1.020 1.000-1.030 Urine Protein NEG NEG Urine Glucose (UA) NEG NEG Urine Ketones 1+ NEG Urine Occult Blood NEG NEG Urine Nitrite NEG NEG Urine Bilirubin NEG NEG Urine Urobilinogen NEG NEG Urine Leukocyte Esterase SMALL NEG Urine WBC (Auto) 1-5 0-5 /hpf Urine RBC (Auto) 0-4 0-4 /hpf Urine Hyaline Casts (Auto) 5-10 0-5 /lpf Urine Epithelial Cells (Auto) >30 0-5 /lpf Urine Bacteria (Auto) NEG NEG Test 09/30/16 06:18 Range/Units White Blood Count 7.75 4.8-10.8 K/uL Red Blood Count 3.37 4.2-5.4 M/uL Hemoglobin 11.1 12.0-16.0 g/dL Hematocrit 32.7 37-47 % Mean Corpuscular Volume 97.0 80-100 fL Mean Corpuscular Hemoglobin 32.9 25-34 pg Mean Corpuscular Hemoglobin Concent 33.9 32-36 g/dl RDW Standard Deviation 44.7 36.4-46.3 fL RDW Coefficient of Variation 12.6 11.5-14.5 % Platelet Count 158 130-400 K/uL Mean Platelet Volume 11.2 7.4-10.4 fL Sodium Level 140 136-145 mmol/L Potassium Level 3.6 3.5-5.1 mmol/L Chloride Level 105 98-107 mmol/L Carbon Dioxide Level 29 21-32 mmol/L Anion Gap 6.0 3-11 mmol/L Blood Urea Nitrogen 13 7-18 mg/dl Creatinine 0.65 0.60-1.20 mg/dl Est Creatinine Clear Calc Drug Dose 67.3 ml/min Estimated GFR () 99.3 Estimated GFR (Non- 85.6 BUN/Creatinine Ratio 19.9 10-20 Random Glucose 106 70-99 mg/dl Calcium Level 8.8 8.5-10.1 mg/dl Total Creatine Kinase 23 26-192 U/L Creatine Kinase MB 0.8 0.5-3.6 ng/ml Creatine Kinase MB Ratio 3.5 0-3.0 Troponin I 0.037 0-0.045 ng/ml Valproic Acid (Depakene) Level 58 50-100 mcg/ml Microbiology Results 09/29/16 Blood Culture, Received Pending 09/29/16 Blood Culture, Received Pending
[2016-09-30] MEDS: ACETAMINOPHEN 325 MG TAB PO PRN (12:04)
[2016-09-30] MEDS: AMOXICILLIN/CLAV POTAS 600 MG/42.9MG/5 ML 75 ML PO SCH (17:06)
[2016-09-30] MEDS: CLINDAMYCIN HCL 150 MG CAP PO SCH (20:56)
[2016-10-01] VITALS (8 sets, daily range): BP systolic 94–145; BP diastolic 52–83; PULSE 58–78; TEMP 36.5–36.9; O2SAT 93–98
[2016-10-01] MEDS: CLINDAMYCIN HCL 150 MG CAP PO SCH (06:11)
[2016-10-01] MEDS: LEVOTHYROXINE 75 MCG TAB PO SCH (06:11)
[2016-10-01] MEDS: PRAVASTATIN SOD 40 MG TAB PO SCH (08:10)
[2016-10-01] MEDS: DIVALPROEX 250 MG EXTENDED REL TAB PO SCH (08:10)
[2016-10-01] MEDS: DIVALPROEX 500 MG EXTENDED RELEASE TAB PO SCH (08:10)
[2016-10-01] MEDS: DULOXETINE HCL 60 MG CAP PO SCH (08:10)
[2016-10-01] MEDS: PANTOprazole SOD 40 MG TAB PO SCH (08:10)
[2016-10-01] MEDS: METOPROLOL SUCC 50MG EXT REL TAB PO SCH (08:11)
[2016-10-01] MEDS: ASPIRIN 81 MG ECTAB PO SCH (08:11)
[2016-10-01] MEDS: D5W AND LACTATED RINGERS 1,000 ML IV SCH (08:13)
[2016-10-01] MEDS: HEPARIN SOD 5000 UNIT/0.5 ML CARP SQ SCH ×2 (08:16→20:40)
[2016-10-01] MEDS: AMOXICILLIN/CLAV POTAS 600 MG/42.9MG/5 ML 75 ML PO SCH ×2 (08:16→17:40)
--- NOTE | 2016-10-01 10:48 | Progress Note ---
Internal Med Progress Note Date of Service: Oct 01, 2016. Provider Documentation: SUBJECTIVE: Patient is awake, alert, pleasant but disoriented x 3, minimal conversation which is her baseline Cough, congested, not bringing up much sputum and overall improved Denies any chest pain. No fever, chills noted On 4 L oxygen-98% OBJECTIVE: Vital Signs-as noted below Exam: General Appearance: Awake, alert, disoriented x 3 at baseline ENT: + pertinent finding (edentulous) Neck: supple Respiratory/Chest: + pertinent finding (few scattered rhonchi) Cardiovascular: regular rate, rhythm, no edema (1+ pretibial edema), no JVD, + systolic murmur Abdomen/GI: normal bowel sounds, non tender, soft Extremities/Musculoskelatal: no calf tenderness, + pertinent finding ( contractures hands bilat) Neurologic/Psych: Patient very confused; unable to cooperate with exam or follow instructions; apparent weakness bilat upper and lower extremities Lab data as noted below. Diagnostic Radiology CHEST ONE VIEW PORTABLE FINDINGS: The bones soft tissues and hemidiaphragms are normal. The cardiomediastinal silhouette is normal. The lungs are clear. The pulmonary vasculature is normal. IMPRESSION: Negative chest. Electronically signed by: Dinesh Soto M.D. 09/29/2016 1:18 PM Dictated Date/Time: 09/29/2016 1:17 PM . EKG EKG performed at 13:13 reviewed and demonstrated NSR at 80 / minute, RBBB, repolarization abnormalities. ASSESSMENT & PLAN: Assessment and Plan ACUTE ON CHRONIC HYPOXIC RESPIRATORY FAILURE : Improved Acute respiratory distress with tachypnea and use of accessory muscles at [facility] on presentation. O2 sats in low 80's on NC 2 LPM. Hypoxia most likely due to aspiration -No infiltrates or CHF on chest x-ray. -Titrate supplemental O2. -PO steroids/Nebs for bronchospasm SUSPECTED ASPIRATION PNEUMONITIS : Underlying Alzheimer's disease and cerebrovascular disease. -Came with hypoxia and had an episode of vomiting at [place] -CXR- no infiltrates, but can be negative initially -Started on PO Augmentin (Day 2/5) -Aspiration precautions. -Pureed diet with thickened liquids. -Speech Rx consulted- aspirates with everything she eats. Discussed with , corby, who understands the risk of aspiration/pneumonia with food but given her poor baseline/dementia would not want her to have any feeding tubes. HIGH ASPIRATION RISK Per speech therapy As discussed above Discussed with , corby, who understands the risk of aspiration/pneumonia with food but given her poor baseline/dementia would not want her to have any feeding tubes. If this leads to frequent hospitalizations, deteriorates the quality of life further, would consider comfort care -Aspiration precautions -Pureed diet with thickened liquids EPISODE OF VOMITING : Resolved Patient had at least one episode of vomiting at the detention. None since admission while in hospital -No further episodes of nausea, vomiting. Abdominal exam benign. ELEVATED SERUM TROPONIN Troponin I 0.084--> 0.059-->0.037 Likely demand ischemia, but unable to determine if patient having any anginal symptoms. -EKG shows NSR, RBBB, nonspecific changes. -No events on telemetry CORONARY ARTERY DISEASE Elevated troponin as noted above. -Continue aspirin, metoprolol, statin. HYPERTENSION -Continue metoprolol. -Follow and titrate therapy. RA -On chronic prednisone therapy. -IV hydrocortisone while acutely ill to maintain hemodynamics and treat bronchospasm --> tapered down to prednisone PO for bronchospasm DEMENTIA-stable, at baseline -Watch for signs of delirium. -At her baseline- Non ambulatory, Disoriented x 3, minimal conversation SEIZURE DISORDER -Valproic acid- 58; -Continue with depakote as at home VTE PROPHYLAXIS -Moderately high risk for DVT. -Subcutaneous heparin. -Unable to ambulate. RESUSCITATION STATUS Patient has a living will from 2007. Records from [facility] indicate that code status is DNR. DNR status confirmed with daughter. DISPOSITION Expected return to [facility] under the care of Dr. Encinas. Likely discharge in AM Discussed with over phone- understands the risk of aspiration/ pneumonias in future. Vital Signs: Date Time Temp Pulse Resp B/P Pulse Ox O2 Delivery O2 Flow Rate FiO2 10/01/16 07:45 98 Nasal Cannula 4.0 10/01/16 07:26 36.9 78 18 145/71 98 Nasal Cannula 4.0 10/01/16 04:38 36.7 66 20 94/52 94 Nasal Cannula 4.0 10/01/16 04:00 Nasal Cannula 4.0 10/01/16 00:00 Nasal Cannula 4.0 09/30/16 23:15 36.8 65 18 130/71 93 4.0 09/30/16 20:00 Nasal Cannula 4.0 09/30/16 19:10 36.8 62 18 134/68 93 4.0 09/30/16 17:00 Nasal Cannula 4.0 09/30/16 15:28 36.9 59 20 127/74 94 Nasal Cannula 4.0 09/30/16 12:17 37.0 66 22 105/65 100 Room Air 09/30/16 12:00 100 Nasal Cannula 4.0
[2016-10-02] MEDS: LEVOTHYROXINE 75 MCG TAB PO SCH (05:52)
[2016-10-02 07:15] VITALS: BP 144/66; PULSE 64; TEMP 36.7; O2SAT 91
[2016-10-02] MEDS: METOPROLOL SUCC 50MG EXT REL TAB PO SCH (08:16)
[2016-10-02] MEDS: ASPIRIN 81 MG ECTAB PO SCH (08:16)
[2016-10-02] MEDS: PANTOprazole SOD 40 MG TAB PO SCH (08:17)
[2016-10-02] MEDS: DIVALPROEX 500 MG EXTENDED RELEASE TAB PO SCH (08:17)
[2016-10-02] MEDS: DIVALPROEX 250 MG EXTENDED REL TAB PO SCH (08:18)
[2016-10-02] MEDS: DULOXETINE HCL 60 MG CAP PO SCH (08:18)
[2016-10-02] MEDS: PRAVASTATIN SOD 40 MG TAB PO SCH (08:18)
[2016-10-02] MEDS: AMOXICILLIN/CLAV POTAS 600 MG/42.9MG/5 ML 75 ML PO SCH (08:34)
[2016-10-02] MEDS: HEPARIN SOD 5000 UNIT/0.5 ML CARP SQ SCH (08:35)
[2016-10-02 11:35] VITALS: O2SAT 94
[2016-10-02 11:37] VITALS: BP 144/66; PULSE 64; TEMP 36.7; O2SAT 94
--- NOTE | 2016-10-02 12:43 | Progress Note ---
Internal Med Progress Note Date of Service: Oct 02, 2016. Provider Documentation: SUBJECTIVE: Patient is awake, alert, pleasant but disoriented x 3, minimal conversation which is her baseline Cough, congested, not bringing up much sputum and overall improved Denies any chest pain. No fever, chills noted Off oxygen -92% OBJECTIVE: Vital Signs-as noted below Exam: General Appearance: Awake, alert, disoriented x 3 at baseline ENT: + pertinent finding (edentulous) Neck: supple Respiratory/Chest: + pertinent finding (few scattered rhonchi) Cardiovascular: regular rate, rhythm, no edema (1+ pretibial edema), no JVD, + systolic murmur Abdomen/GI: normal bowel sounds, non tender, soft Extremities/Musculoskelatal: no calf tenderness, + pertinent finding ( contractures hands bilat) Neurologic/Psych: Patient very confused; unable to cooperate with exam or follow instructions; apparent weakness bilat upper and lower extremities Lab data as noted below. Diagnostic Radiology CHEST ONE VIEW PORTABLE FINDINGS: The bones soft tissues and hemidiaphragms are normal. The cardiomediastinal silhouette is normal. The lungs are clear. The pulmonary vasculature is normal. IMPRESSION: Negative chest. Electronically signed by: Dinesh Soto M.D. 09/29/2016 1:18 PM Dictated Date/Time: 09/29/2016 1:17 PM . EKG EKG performed at 13:13 reviewed and demonstrated NSR at 80 / minute, RBBB, repolarization abnormalities. ASSESSMENT & PLAN: Assessment and Plan ACUTE ON CHRONIC HYPOXIC RESPIRATORY FAILURE : Improved Acute respiratory distress with tachypnea and use of accessory muscles at senior living on presentation. O2 sats in low 80's on NC 2 LPM. Hypoxia most likely due to aspiration -No infiltrates or CHF on chest x-ray. -Titrate supplemental O2- Off at rest, but will need 2 L oxygen while ambulating -PO steroids/Nebs for bronchospasm SUSPECTED ASPIRATION PNEUMONITIS : Underlying Alzheimer's disease and cerebrovascular disease. -Came with hypoxia and had an episode of vomiting at [place] -CXR- no infiltrates, but can be negative initially -Started on PO Augmentin (Day 3/5) -Aspiration precautions. -Pureed diet with thickened liquids. -Speech Rx consulted- aspirates with everything she eats. Permissive aspiration . Discussed with , corby, who understands the risk of aspiration/ pneumonia with food but given her poor baseline/dementia would not want her to have any feeding tubes. HIGH ASPIRATION RISK Per speech therapy As discussed above Discussed with , corby, who understands the risk of aspiration/pneumonia with food but given her poor baseline/dementia would not want her to have any feeding tubes. If this leads to frequent hospitalizations, deteriorates the quality of life further, would consider comfort care -Aspiration precautions -Pureed diet with thickened liquids EPISODE OF VOMITING : Resolved Patient had at least one episode of vomiting at the senior living. None since admission while in hospital -No further episodes of nausea, vomiting. Abdominal exam benign. ELEVATED SERUM TROPONIN Troponin I 0.084--> 0.059-->0.037 Likely demand ischemia, but unable to determine if patient having any anginal symptoms. -EKG shows NSR, RBBB, nonspecific changes. -No events on telemetry CORONARY ARTERY DISEASE Elevated troponin as noted above. -Continue aspirin, metoprolol, statin. HYPERTENSION -Continue metoprolol. -Follow and titrate therapy. RA -On chronic prednisone therapy. -IV hydrocortisone while acutely ill to maintain hemodynamics and treat bronchospasm --> tapered down to prednisone PO for bronchospasm DEMENTIA-stable, at baseline -Watch for signs of delirium. -At her baseline- Non ambulatory, Disoriented x 3, minimal conversation SEIZURE DISORDER -Valproic acid- 58; -Continue with depakote as at home VTE PROPHYLAXIS -Moderately high risk for DVT. -Subcutaneous heparin. -Unable to ambulate. RESUSCITATION STATUS Patient has a living will from 2007. Records from [facility] indicate that code status is DNR. DNR status confirmed with daughter. DISPOSITION Expected return to [facility] under the care of Dr. Encinas. Okay to discharge [facility] today Discussed with over phone- understands the risk of aspiration/ pneumonias in future. Vital Signs: Date Time Temp Pulse Resp B/P Pulse Ox O2 Delivery O2 Flow Rate FiO2 10/02/16 11:37 36.7 64 18 94 Nasal Cannula 10/02/16 11:35 94 Nasal Cannula 2.0 10/02/16 08:30 Nasal Cannula 2.0 10/02/16 07:15 36.7 64 18 144/66 91 Nasal Cannula 2.0 10/02/16 00:00 Nasal Cannula 2.0 10/01/16 23:10 36.5 58 18 145/83 93 Nasal Cannula 2.0 10/01/16 16:58 95 Nasal Cannula 2.0 10/01/16 15:48 95 Nasal Cannula 2.0 10/01/16 15:27 36.8 68 20 125/70 95 Room Air
[2016-10-02] MEDS ORDERED: HYDR-5688 PO (12:46)
[2016-10-02] MEDS ORDERED: PRED10TA PO (12:46)
[2016-10-02] MEDS ORDERED: AMOX600S PO (12:46)
--- NOTE | 2016-10-02 12:48 | Discharge Instructions ---
Discharge Instructions Date of Service Oct 02, 2016. Admission Reason for Admission: Elevated Troponin, Hypoxia Discharge Discharge Diagnosis / Problem: 1. Aspiration pneumonitis 2. Hypoxia- acute on chronic Discharge Goals Goal(s): Decrease discomfort, Improve function Activity Recommendations Activity Limitations: resume your previous activity (as tolerated prior to admission) . Instructions / Follow-Up Instructions / Follow-Up MEDICATION CHANGES: 1. New medication: Clindamycin as directed x 3 more days to complete 5 day course for possible aspiration pneumonitis 2. Prednisone as folllows- 20 mg daily x 3 days f/b 10 mg daily x 3 days f/b 5 mg q 2 days as prior to admission FOLLOW UP 1. Follow up with PCP in 1 week OXYGEN 2 L as prior to admission Current Hospital Diet Patient's current hospital diet: AHA Diet (Heart Healthy), Diabetes Type 2 Diet Discharge Diet Recommended Diet: AHA Diet (Heart Healthy), Diabetes Type 2 Diet Diet Texture: Pureed (blended smooth) (with thickened liquids with aspiration precautions) Liquid Consistency: [place] Thick Pending Studies Studies pending at discharge: no Medical Emergencies . Who to Call and When: Medical Emergencies: If at any time you feel your situation is an emergency, please call 911 immediately. . Non-Emergent Contact Non-Emergency issues call your: Primary Care Provider . . "Provider Documentation" section prepared by Sherley Elizondo. . VTE Core Measure Inpt VTE Proph given/why not?: Unfractionated heparin SQ
--- NOTE | 2016-10-02 12:51 | Discharge Summary ---
Discharge Summary Date of Service Oct 02, 2016. Discharge Summary Admission Date: Sep 29, 2016 at 17:29 Discharge Date: Oct 02, 2016 Discharge Disposition: [facility] facility ([facility]) Principal Diagnosis: 1. Aspiration pneumonitis 2. Acute on chronic hypoxic respiratory failure Secondary Diagnoses/Problems: 1. Dementia 2. HTN 3. Rh arthritis hx 4. Seizure disorder Procedures: IV antibiotics CXR PT/OT Steroids CXR Speech evaluation Consultations: None Pending Studies/Follow-Up: Instructions / Follow-Up Instructions / Follow-Up MEDICATION CHANGES: 1. New medication: Clindamycin as directed x 3 more days to complete 5 day course for possible aspiration pneumonitis 2. Prednisone as folllows- 20 mg daily x 3 days f/b 10 mg daily x 3 days f/b 5 mg q 2 days as prior to admission FOLLOW UP 1. Follow up with PCP in 1 week Medication Reconciliation New Medications: Prednisone Tab (Prednisone) 10 Mg Tab 10 MG PO UD, #30 TAB Take 20 mg daily x 3 days f/b 10 mg daily x 3 days f/b 5 mg q 2 days as prior to admission Amoxicillin & Pot Clavulanate (Amoxicillin/Clavulanate P) 1 Rosa Rosa 800 MG PO BIDM for 3 Days Continued Medications: Acetaminophen (Tylenol) 325 Mg Tab 650 MG PO Q4HR PRN PRN for Mild Pain, 0 Refills NOT TO EXCEED 3000 MG APAP/24HR Aspirin (Aspirin Ec) 81 Mg Tab 81 MG PO DAILY Bisacodyl (Bisac-Evac) 10 Mg Sup 1 SUPP ID UD PRN for NO BM X5 D/MOM INEFFECTIVE Calcium Carbonate (Tums) 500 Mg Chew 500 MG PO DAILY Cholecalciferol (Vitamin D-1000) 1,000 Unit Tab 1000 UNITS PO DAILY Divalproex Sodium (Divalproex Sodium ER) 250 Mg Tabcr 250 MG PO DAILY GIVE AT 1PM DAILY ALONG WITH 500MG TAB TO EQUAL 750MG DAILY DOSAGE Divalproex Sodium (Divalproex Sodium ER) 500 Mg Tabcr 500 MG PO DAILY TAKE 500MG WITH 250MG DAILY TO EQUAL 750MG DOSE AT 1300 Duloxetine Hcl (Cymbalta) 60 Mg Cap 60 MG PO DAILY, CAP Hydrocodone/Acetaminophen 5MG/325MG ([place] 5MG/325MG) Tab 1 TAB PO BID, #30 TAB (This prescription has been renewed) PRN PAIN Levothyroxine Sodium (Levothyroxine Sodium) 75 Mcg Tab 75 MCG PO DAILY for 90 Days, #90 TAB 3 Refills Magnesium Hydroxide (Milk Of Magnesia) 30 Ml Susp 5 ML PO UD PRN for NO BM X 3 DAYS Metoprolol Succ (Toprol Xl) (Toprol-Xl) 50 Mg Tabcr 50 MG PO QAM, TAB Oxygen (Oxygen) Gas 2 LITERS NA CONTINOUS Oyster Shell (Calcium) 500 Mg Tab 500 MG PO DAILY Polyethylene Glycol 3350 (Miralax) 1 Pow Pow 255 GM PO BID, #255 GM Pravastatin Sod (Pravastatin Sodium) 40 Mg Tab 40 MG PO DAILY Senna/Docusate Sod (Senokot S) 1 Tab Tab 1 TAB PO HS, 0 Refills Sodium Phosphate/Biphosphate (Fleet Enema) Lizabeth 1 EA ID UD PRN for Constipation, BTL NO BM X 6 DAYS/SUPPOSITORY INEFFECTIVE Discontinued Medications: Prednisone (Prednisone) 5 Mg Tab 5 MG PO Q2D, TAB Admission Information HPI (per Admitting provider): 75 YO female followed by Dr. Encinas at [facility]. History of ischemic heart disease, diastolic CHF, hypertension, Alzheimer's disease, cerebrovascular disease, and other problems noted below. Uses O2 2 LPM for chronic respiratory failure. Patient very confused and nonambulatory at baseline. Requires assistance with eating and all ADL's. Daughter reports episode of vomiting yesterday. Today patient was noted to be acutely SOB with chest congestion and hypoxia with O2 sats in the low 80's on NC 2 LPM. Patient was suctioned. O2 sats still only 85% on 4L. Patient was transported to ED for further evaluation. Patient unable to provide any history due to her severe dementia. . Physical Exam (per Admitting): General Appearance: no apparent distress Head: normocephalic, atraumatic Eyes: PERRL, EOMI, sclerae normal ENT: + pertinent finding (edentulous) Neck: supple, no adenopathy, thyroid normal, no JVD, trachea midline Respiratory/Chest: + pertinent finding (few scattered rhonchi, mild wheezing ) Cardiovascular: regular rate, rhythm, no edema (1+ pretibial edema), no JVD , + systolic murmur (III/ systolic murmur heard at base and LSB), + pertinent finding (no gallop appreciated) Abdomen/GI: normal bowel sounds, non tender, soft, no organomegaly Extremities/Musculoskelatal: no calf tenderness, + slow capillary refill ( about 2 sec), + pertinent finding (contractures hands bilat) Neurologic/Psych: executive team leader II-XII nml as tested (PERRL, EOMI), + pertinent finding (patient very confused; unable to cooperate with exam or follow instructions; apparent weakness bilat upper and lower extremities; plantar reflexes upgoing bilat) Skin: normal color, warm/dry Lymphatic: + pertinent finding (no cervical adenopathy) Hospital Course Assessment and Plan ACUTE ON CHRONIC HYPOXIC RESPIRATORY FAILURE : Resolved Acute respiratory distress with tachypnea and use of accessory muscles at shelter on presentation. O2 sats in low 80's on NC 2 LPM. Back to baseline of 2 L oxygen Hypoxia most likely due to aspiration -No infiltrates or CHF on chest x-ray. -PO steroids/Nebs for bronchospasm SUSPECTED ASPIRATION PNEUMONITIS : Underlying Alzheimer's disease and cerebrovascular disease. -Came with hypoxia and had an episode of vomiting at [place] -CXR- no infiltrates, but can be negative initially -Started on PO Augmentin (Day 3/5) -Aspiration precautions. -Pureed diet with thickened liquids. -Speech Rx consulted- aspirates with everything she eats. Permissive aspiration . Discussed with , corby, who understands the risk of aspiration/ pneumonia with food but given her poor baseline/dementia would not want her to have any feeding tubes. HIGH ASPIRATION RISK Per speech therapy As discussed above Discussed with , corby, who understands the risk of aspiration/pneumonia with food but given her poor baseline/dementia would not want her to have any feeding tubes. If this leads to frequent hospitalizations, deteriorates the quality of life further, would consider comfort care -Aspiration precautions -Pureed diet with thickened liquids EPISODE OF VOMITING : Resolved Patient had at least one episode of vomiting at the shelter. None since admission while in hospital -No further episodes of nausea, vomiting. Abdominal exam benign. ELEVATED SERUM TROPONIN Troponin I 0.084--> 0.059-->0.037 Likely demand ischemia, but unable to determine if patient having any anginal symptoms. -EKG shows NSR, RBBB, nonspecific changes. -No events on telemetry CORONARY ARTERY DISEASE Elevated troponin as noted above. -Continue aspirin, metoprolol, statin. HYPERTENSION -Continue metoprolol. -Follow and titrate therapy. RA -On chronic prednisone therapy. -IV hydrocortisone while acutely ill to maintain hemodynamics and treat bronchospasm --> tapered down to prednisone PO for bronchospasm DEMENTIA-stable, at baseline -Watch for signs of delirium. -At her baseline- Non ambulatory, Disoriented x 3, minimal conversation SEIZURE DISORDER -Valproic acid- 58; -Continue with depakote as at home VTE PROPHYLAXIS -Moderately high risk for DVT. -Subcutaneous heparin. -Unable to ambulate. RESUSCITATION STATUS Patient has a living will from 2007. Records from [facility] indicate that code status is DNR. DNR status confirmed with daughter. DISPOSITION Expected return to [facility] under the care of Dr. Encinas. Okay to discharge [facility] today Discussed with over phone- understands the risk of aspiration/ pneumonias in future. Total time spent on discharge = 35 minutes This includes examination of the patient, discharge planning, medication reconciliation, and communication with other providers. Discharge Instructions Discharge Goals Goal(s): Decrease discomfort, Improve function Activity Recommendations Activity Limitations: resume your previous activity (as tolerated prior to admission) . Instructions / Follow-Up Instructions / Follow-Up MEDICATION CHANGES: 1. New medication: Clindamycin as directed x 3 more days to complete 5 day course for possible aspiration pneumonitis 2. Prednisone as folllows- 20 mg daily x 3 days f/b 10 mg daily x 3 days f/b 5 mg q 2 days as prior to admission FOLLOW UP 1. Follow up with PCP in 1 week Current Hospital Diet Patient's current hospital diet: AHA Diet (Heart Healthy), Diabetes Type 2 Diet Discharge Diet Recommended Diet: AHA Diet (Heart Healthy), Diabetes Type 2 Diet Diet Texture: Pureed (blended smooth) (with thickened liquids with aspiration precautions) Liquid Consistency: [place] Thick Pending Studies Studies pending at discharge: no Medical Emergencies . Who to Call and When: Medical Emergencies: If at any time you feel your situation is an emergency, please call 911 immediately. . Non-Emergent Contact Non-Emergency issues call your: Primary Care Provider . . "Provider Documentation" section prepared by Sherley Elizondo. . VTE Core Measure Inpt VTE Proph given/why not?: Unfractionated heparin SQ
[2016-10-02 15:16] VITALS: BP 151/73; PULSE 72; TEMP 37.1
== END 2016-10-02 16:30 | DRG 177 ==
LOC: ENRESERVTM → ENRESERVDT → EDBD 12:49 → C.EDC 12:50 → C.MED 17:29
PROVIDERS: ADMIT Hospitalist; ATTEND Internal Medicine
DX: J69.0 Pneumonitis due to inhalation of food and vomit (principal); I50.30 Unspecified diastolic (congestive) heart failure; I24.8 Other forms of acute ischemic heart disease; J96.21 Acute and chronic respiratory failure with hypoxia; G30.9 Alzheimer's disease, unspecified; F02.80 Dementia in other diseases classified elsewhere, unspecified severity, without behavioral disturbance, psychotic disturbance, mood disturbance, and anxiety; N18.3 Chronic kidney disease, stage 3 (moderate); I67.9 Cerebrovascular disease, unspecified; I25.10 Atherosclerotic heart disease of native coronary artery without angina pectoris; K21.9 Gastro-esophageal reflux disease without esophagitis; Z66 Do not resuscitate; R09.02 Hypoxemia; M06.9 Rheumatoid arthritis, unspecified; I45.10 Unspecified right bundle-branch block; Z79.52 Long term (current) use of systemic steroids; G40.909 Epilepsy, unspecified, not intractable, without status epilepticus; Z96.653 Presence of artificial knee joint, bilateral; Z86.73 Personal history of transient ischemic attack (TIA), and cerebral infarction without residual deficits; Z88.0 Allergy status to penicillin; Z79.82 Long term (current) use of aspirin